=== PATIENT | male | born 1960 | race Caucasian/White ===

== ENCOUNTER 2017-07-21 08:57 | Emergency (ER) | payer MEDICAID ==
[~2017-07-21] VITALS: Ht 172.7 cm; Wt 65.0 kg
[~2017-07-21 08:57] MED LIST: ASPI-1158 PO; ATOR-2 PO; CLON0.5T4 PO; Docusate Sodium PO; ERGO500013 PO; HYDR10TA14 PO; IBUP-2028 PO; LAMO150T PO; MECL-109 PO; PRAM0.128 PO; TERA10CA4 PO; TERA2CAP4 PO; ZONI100C45 PO
[2017-07-21] MEDS ORDERED: LIDOCAINE HCL 1%/EPI 1:200,000 30 ML VIAL MC ONE (10:30)
[2017-07-21 12:38] VITALS: BP 114/71
== END 2017-07-21 13:57 | disposition home or self-care (01) ==
LOC: ER 10:15
DX: K61.0 Anal abscess (principal); M32.9 Systemic lupus erythematosus, unspecified; R56.9 Unspecified convulsions; Z79.82 Long term (current) use of aspirin
CPT/HCPCS: 46050; 76870; 93976; 99284; Z7610

== ENCOUNTER 2017-07-24 09:10 | Emergency (ER) | payer MEDICAID ==
[~2017-07-24] VITALS: Ht 172.7 cm; Wt 80.0 kg
[2017-07-24 11:52] VITALS: BP 120/69
== END 2017-07-24 12:50 | disposition home or self-care (01) ==
LOC: ER 09:10
DX: Z48.01 Encounter for change or removal of surgical wound dressing (principal); Z79.82 Long term (current) use of aspirin; Z79.899 Other long term (current) drug therapy
CPT/HCPCS: 99281; Z7610